=== PATIENT | male | born 1965 | race Two or more races ===

== ENCOUNTER 2019-02-21 20:48 | Emergency (ER) | payer OTHER ==
[~2019-02-21] VITALS: Ht 172.7 cm; Wt 54.9 kg
[2019-02-21] MEDS ORDERED: MONTELUKAST SOD10 MG ORAL (20:55)
[2019-02-21] MEDS ORDERED: NEURONTIN300 MG ORAL (20:55)
[2019-02-21] MEDS ORDERED: NORVASC10 MG ORAL (20:55)
[2019-02-21] MEDS ORDERED: QVAR7.3 GM INH (20:55)
[2019-02-21] MEDS ORDERED: OMEPRAZOLE20 M3 ORAL (20:55)
[2019-02-21] MEDS ORDERED: DOCUSATE SODIU100 M2 ORAL (20:55)
[2019-02-21] MEDS ORDERED: TERAZOSIN HCL2 MG PO (20:55)
[2019-02-21] MEDS ORDERED: TRAMADOL HCL100 M2 ORAL (20:55)
[2019-02-21 21:00] VITALS: BP 139/89
--- NOTE | 2019-02-21 21:00 | NUR ---
ED Nurse Note: PT ROMIE [id number] FROM [facility] C/O L INGROIN PAIN FROM HERNIA. Pt with family,. Pt AAO x4, vss, with no acute distress.
--- NOTE | 2019-02-21 21:20 | Emergency Room Report ---
History of Present Illness General Chief Complaint: Pain Source: Patient Present Illness HPI Patient is a 54-year-old male presented after increased discomfort to his inguinal hernia. Patient reportedly had been scheduled for surgery in the past. He had prior history of smoking as well as COPD. He had been reportedly walking through [place] earlier in the day. He denies any vomiting. He reports having prior history of hypertension. He denies taking his medications this morning. Reports having some chronic vertigo from a prior CVA. Allergies: Coded Allergies: PENICILLINS (Verified Allergy, Unknown, 02/21/19) Patient History Past Medical History: see triage record Reviewed Nursing Documentation: PMH: Agreed; PSxH: Agreed Nursing Documentation-PMH Past Medical History: No History, Except For Hx Cardiac Problems: Yes - PR Hx Hypertension: Yes Hx Asthma: Yes History Of Psychiatric Problem: Yes - ANXIETY Hx Neurological Problems: Yes - CVA Review of Systems All Other Systems: negative except mentioned in HPI Physical Exam Vital Signs Date Time Temp Pulse Resp B/P (MAP) Pulse Ox O2 Delivery O2 Flow Rate FiO2 02/21/19 20:44 98.8 88 18 177/88 (117) 98 Room Air General Appearance: alert, GCS 15, non-toxic, Chronically Ill Head: normocephalic Eyes: bilateral eye other - will not cooperate with EOM exam ENT: hearing grossly normal Respiratory: chest non-tender, lungs clear, normal breath sounds Cardiovascular #1: normal peripheral pulses Gastrointestinal: normal inspection, non tender, soft Genitourinary: other - left inguinal hernia easily reducible, soft Neurologic: normal inspection, alert, other - right upper extremity resting tremor Psychiatric: normal inspection Medical Decision Making Diagnostic Impression: Primary Impression: History of CVA (cerebrovascular accident) Additional Impression: Hernia ER Course Patient presented for hernia pain. Differential diagnosis include was not limited to incarceration, bowel obstruction among others. Patient has a benign exam and does not appear to require any imaging or laboratory testing at this time. Patient's hernia appears to be easily reducible. No vomitting. Patient blood pressure appears to be well controlled.The patient is advised to follow up with primary care doctor in 1-2 days. Patient is advised to return if any worsening condition or if any changes in status that are concerning. This report is dictated with [employer] communications project manager software which may occasionally lead to discrepancies related to use of this software. Last Vital Signs Date Time Temp Pulse Resp B/P (MAP) Pulse Ox O2 Delivery O2 Flow Rate FiO2 02/21/19 21:00 98.8 73 18 139/89 98 Room Air Status: improved Disposition: HOME, SELF-CARE Condition: Stable Deng Jones MD Feb 21, 2019 21:20
[2019-02-21] MEDS ORDERED: Albuterol/Ipratropium 3ml neb HHN ONE (21:30)
[2019-02-21] MEDS ORDERED: Meclizine 25mg tab ORAL ONE (21:30)
[2019-02-21] MEDS ORDERED: COLACE100 MG ORAL (22:41)
[2019-02-21 23:17] VITALS: BP 139/89
== END 2019-02-21 23:06 | disposition home or self-care (01) ==
LOC: EDBD 20:48 → EMR 21:08
DX: K40.90 Unilateral inguinal hernia, without obstruction or gangrene, not specified as recurrent (principal); Z86.73 Personal history of transient ischemic attack (TIA), and cerebral infarction without residual deficits; J44.9 Chronic obstructive pulmonary disease, unspecified; Z87.891 Personal history of nicotine dependence; F41.9 Anxiety disorder, unspecified; I10 Essential (primary) hypertension; I25.2 Old myocardial infarction; Z88.0 Allergy status to penicillin; Z59.0 Homelessness; R42 Dizziness and giddiness
CPT/HCPCS: 94640; 94664; 99284; J7620